=== PATIENT | male | born 1945 | race African-American/Black ===

== ENCOUNTER 2017-12-22 17:22 | Emergency (ER) | payer MEDICARE ==
[~2017-12-22] VITALS: Ht 182.9 cm; Wt 70.0 kg
[~2017-12-22 17:22] MED LIST: BRIMONIDINE OP; DORZOLAMIDE OP; HYDROCHLOROTHIAZIDE PO; LATANOPROST OP; LOSARTAN; TIMOLOL OP
[2017-12-22] MEDS ORDERED: CYCLOBENZAPRINE 10MG TABLET PO ONE (18:00)
[2017-12-22] MEDS ORDERED: KETOROLAC 60MG/2ML VIAL IM ONE (18:00)
[2017-12-22] MEDS ORDERED: CLONIDINE 0.1MG TABLET PO ONE (18:00)
[2017-12-22 19:43] VITALS: BP 150/62
== END 2017-12-22 19:46 | disposition home or self-care (01) ==
LOC: ER 18:50
DX: M54.12 Radiculopathy, cervical region (principal); M62.838 Other muscle spasm; I10 Essential (primary) hypertension; H40.9 Unspecified glaucoma
CPT/HCPCS: 93005; 96372; 99284; J1885

== ENCOUNTER 2022-04-26 19:57 | Emergency (ER) | payer MEDICARE, OTHER ==
[~2022-04-26] VITALS: Ht 182.9 cm; Wt 72.0 kg
[2022-04-26] MEDS ORDERED: ACETAMINOPHEN 325MG TABLET PO ONE (20:30)
[2022-04-26] MEDS ORDERED: TOPUD PO (21:11)
[2022-04-26 21:25] VITALS: BP 145/86
== END 2022-04-26 21:25 | disposition home or self-care (01) ==
LOC: ER 20:11
DX: M79.661 Pain in right lower leg (principal); I10 Essential (primary) hypertension; H40.9 Unspecified glaucoma
CPT/HCPCS: 93971; 99284